=== PATIENT | female | born 1990 | race Caucasian/White ===

== ENCOUNTER → 2019-03-02 13:56 | Outpatient (CLI) | payer OTHER, SELFPAY ==
--- NOTE | 2019-03-02 | DI.MRI.S_ITS ---
PROCEDURE: MR KNEE LT WO CON INDICATIONS: Pain in left knee TECHNIQUE: Noncontrast sagittal PD fast spin echo and T2 fast spin echo with fat saturation, sagittal 3-D FLASH with fat saturation; coronal T1 spin echo and PD fast spin echo with fat saturation, and axial PD fast spin echo with fat saturation through the knee. COMPARISON: None. FINDINGS: Image quality: Excellent. Menisci: Lateral meniscus appears intact. Myxoid degeneration involving the posterior horn of the medial meniscus and body, with possible subtle contour irregularity of the undersurface raise the possibility of nondisplaced tear although technically indeterminate by strict MR criteria. Cruciate ligaments: The anterior and posterior cruciate ligaments appear intact. Medial structures: The medial collateral ligament appears intact. The posterior oblique ligament, semimembranosus tendon insertions, oblique popliteal ligament, and meniscocapsular junction appear intact. Visualized portions of the pes anserinus tendons appear normal. No abnormal bursal fluid. Lateral structures: lateral collateral ligament demonstrates thickening and intrasubstance signal change in keeping with sprain, although technically age indeterminate. The biceps femoris tendon appears intact. The popliteus tendon appears normal; the popliteofibular ligament appears intact. The posterosuperior and anteroinferior popliteomeniscal fascicles appear intact. The arcuate and fabellofibular ligaments appear intact, on either side of the lateral inferior geniculate artery. Iliotibial band appears normal. Anterior structures: The quadriceps and patellar tendons appear intact. Patellar alignment is normal. No femoral trochlear dysplasia or ventral trochlear prominence. No edema in the infrapatellar fat pad. Bones and cartilage: No bone marrow contusions or fractures. The cartilage of the medial and lateral femorotibial compartments, as well as the patellofemoral compartment, appears normal in thickness. Joint space: Trace joint effusion. No definite formed Way's cyst. No specific evidence of intra-articular loose body. IMPRESSION: Possible subtle undersurface tear involving the medial meniscus posterior horn and body although technically indeterminate; recommend clinical correlation as above. Trace joint effusion. Dictated by: Stanislav Hernandez M.D. on 03/02/2019 at 15:49 Approved by: Stanislav Hernandez M.D. on 03/02/2019 at 15:55
== END ==
DX: M25.562 Pain in left knee (principal)
CPT/HCPCS: 73721